=== PATIENT | female | born 1990 | race Two or more races ===

== ENCOUNTER 2019-10-15 12:49 | Emergency (ER) | payer MEDICAID, OTHER ==
[~2019-10-15] VITALS: Ht 162.6 cm; Wt 88.5 kg
[2019-10-15 13:01] VITALS: BP 117/87
[2019-10-15 13:54] LABS: Urine Bacteria NONE SEEN /hpf (None Seen); Urine Blood 3+ /uL (Negative); Urine Mucus FEW (None Seen); Urine Specific Gravity 1.022 (1.001-1.035); Urine WBC 3 /hpf (0 - 5)
== END 2019-10-15 14:45 | disposition home or self-care (01) ==
LOC: ER 12:49
DX: O03.9 Complete or unspecified spontaneous abortion without complication (principal)
CPT/HCPCS: 36415; 81001; 81025; 84702

== ENCOUNTER 2020-04-19 12:35 | Observation (INO) | payer OTHER ==
[~2020-04-19] VITALS: Ht 162.6 cm; Wt 83.9 kg
[2020-04-19] MEDS ORDERED: PREN1CAP20 PO (13:13)
== END 2020-04-19 15:07 | disposition home or self-care (01) ==
LOC: LDRP 12:35 → UNDOADMOB 12:35 → UNDODISOB 15:07
PROVIDERS: ADMIT Obstetrics & Gynecology; ATTEND Obstetrics & Gynecology
DX: O36.8120 Decreased fetal movements, second trimester, not applicable or unspecified (principal); O26.892 Other specified pregnancy related conditions, second trimester; R10.9 Unspecified abdominal pain; Z3A.21 21 weeks gestation of pregnancy
CPT/HCPCS: 59025; 76805; 81002; G0378